=== PATIENT | male | born 1980 | race Caucasian/White ===

== ENCOUNTER 2022-09-17 08:00 | Day surgery (SDC) | payer BC, OTHER ==
--- NOTE | 2022-09-16 13:56 | EKG ---
Test Date: 2022-09-15 Test Time: 15:52:50 Data Scientist: VICKY MEASUREMENT RESULTS: Intervals: Rate: 81 [place]: 150 QRSD: 96 QT: 340 QTc: 394 [place]: P: 55 [place]: 150 QRS: 49 T: 61 INTERPRETIVE STATEMENTS: Normal sinus rhythm Septal infarct, age undetermined Abnormal ECG No previous ECG available for comparison Electronically Signed On 09-16-22 13:55:04 CDT by Yoav Underwood
[2022-09-17] MEDS ORDERED: Ringers Lactate 1,000 ML IV ONE (08:45)
[2022-09-17] MEDS: BUPIVACAINE 0.25% PF 30 ML VIAL ONE ×2 (09:16→09:50)
[2022-09-17] MEDS: CEFAZOLIN SODIUM 2 GM/VIAL ONE ×2 (09:16→09:28)
[2022-09-17] MEDS ORDERED: propofoL 200 MG/20 ML VIAL IV ONE (09:19)
[2022-09-17] MEDS ORDERED: MIDAZOLAM HCL 2 MG/2 ML INJ ONE (09:20)
[2022-09-17] MEDS ORDERED: FENTANYL CITR 100 MCG/2 ML ONE (09:20)
[2022-09-17] MEDS ORDERED: ONDANSETRON 4 MG/2 ML VIAL ONE ×2 (09:21→10:17)
[2022-09-17] MEDS ORDERED: LIDOCAINE 2% MPF 5 ML VIAL ONE (09:21)
--- NOTE | 2022-09-17 10:03 | P.OP ---
Preoperative diagnosis: RIGHT posterior Back infected cyst Postoperative diagnosis: RIGHT posterior Back infected cyst Primary procedure: Excision of RIGHT posterior Back infected cyst Anesthesia: GETA + Local Estimated blood loss: < 5cc Specimen: Debridement Tissue, Cultures Findings: ~3cm infected sebacesous Cyst Complications: None Transferred to: Recovery Room Condition: Good
[2022-09-17] MEDS ORDERED: EPHEDRINE SULF 50 MG/ML VIAL ONE (10:17)
[2022-09-17] MEDS ORDERED: HYDROCODONE/APAP 7.5/325 MG TAB ONE (12:03)
[2022-09-17 14:21] VITALS: O2SAT 96
[2022-09-17 14:23] VITALS: BP 124/54; TEMP 97
--- NOTE | 2022-09-17 19:55 | OP ---
Date of Procedure: 09/17/2022 Surgeon: Luis Alberto Andrade MD, Preoperative Diagnosis: Right posterior back infected cyst. Postop Diagnosis: Right posterior back infected cyst. Procedure: Excision of right posterior back infected cyst. Anesthesia: General endotracheal plus local with 0.25% Marcaine. Estimated Blood Loss: Less than 5 cc. Specimen: Debrided tissue and cultures sent for aerobic and anaerobic speciation. Findings: Approximately 3 cm infected sebaceous cyst of the right side of the mid back. Complications: None. The patient was transferred to recovery room in good condition. Procedure In Detail: After informed consent was obtained, the patient was brought to the operating r oom and prepped and draped in the usual sterile fashion. After anesthesia was achieved, I made a cur vilinear incision around the area of the right posterior back in the mid back position where an obvio us infected cyst was appreciated. I dissected down through subcutaneous tissues using a 15 blade. I circumferentially dissected around the infected sebaceous cyst, which had abscess material emanating from this area. I then cultured it for both aerobic and anaerobic speciation and continued dissecti on to remove the entire thing down to the level of the fascia overlying muscle, but not including the muscle. After this cyst was removed, it was approximately 3 cm x 2 cm x 3 cm down to the fascia ove rlying the muscle. This was sent off for pathologic examination. At this point, I then irrigated th e area. Hemostasis was achieved with electrocautery. I partially reapproximated the edges using a 2 -0 nylon suture and packed the center portion with Vashe soaked plain packing. A sterile dressing wa s placed over top. The patient tolerated the procedure without evidence of any complication and larson sferred to PACU in good condition. All counts were correct at the end of the case. TK/MODL Voice ID: [id number] Report ID: [id number]
== END 2022-09-17 12:30 | disposition home or self-care (01) ==
LOC: OR 08:00
PROVIDERS: ATTEND Surgery
PROC: 0HB6XZZ Excision of Back Skin, External Approach (ICD-10-PCS; principal; 2022-09-17 09:00)
DX: L72.3 Sebaceous cyst (principal); L08.89 Other specified local infections of the skin and subcutaneous tissue
CPT/HCPCS: 93005; 87070; 87205; 82947; 88304; 87075; 11403; J2704; J2001; J2250; J3010; J2405 ×2; J7120; 87077; 87186